=== PATIENT | female | born 1985 | race Asian ===

== ENCOUNTER 2020-02-13 22:07 | Emergency (ER) | payer SELFPAY ==
[2020-02-13 22:13] VITALS: Ht 160 cm
[2020-02-14 00:35] VITALS: BP 123/81
== END 2020-02-14 00:35 | disposition home or self-care (01) ==
LOC: ED 22:07
DX: S06.0X0A Concussion without loss of consciousness, initial encounter (principal); S00.03XA Contusion of scalp, initial encounter; Y04.2XXA Assault by strike against or bumped into by another person, initial encounter; Y93.89 Activity, other specified; Y92.89 Other specified places as the place of occurrence of the external cause; Y99.8 Other external cause status